=== PATIENT | male | born 1940 | race Two or more races ===

== ENCOUNTER 2024-03-05 07:46 | Inpatient (IN) | payer OTHER ==
[2024-03-05] VITALS (18 sets, daily range): BP systolic 105–166; BP diastolic 47–100; PULSE 70–109; RESP 15–22; TEMP 97.5–98.8; O2SAT 88–98
[~2024-03-05] VITALS: Ht 172.7 cm; Wt 65.8 kg
[~2024-03-05 07:46] MED LIST: ACET1CAP14 PO; ALBU108A5 IN; AMLO1TAB22 PO; APIX5TAB PO; CARB25TA79 PO; DOXA1TAB28 PO; EZET-10 PO; FURO40TA4 PO; HYDR-2792 PO; LACT10PA2 PO; LINA145C OR; MIRT-93 PO; PANT40T PO; ROSU10TA16 PO
[2024-03-05] MEDS: VANCOMYCIN HCL 1000 MG VL ONE (10:08)
[2024-03-05] MEDS: fentaNYL CITRATE 100 MCG/2 ML VL ONE (10:08)
[2024-03-05] MEDS: MIDAZOLAM HCL 2MG/2ML 2ml VIAL (1mg/ml) ONE (10:09)
[2024-03-05] MEDS: VANCOMYCIN 1GM/200ML 200 ML IV ONE (10:09)
[2024-03-05] MEDS: IODIXANOL 320MG/ML 100ML BTL IV ONE (10:10)
[2024-03-05] MEDS: LIDOCAINE 2%HCL (LOCAL ANESTH.) INJ 20ML MDV ONE ×2 (10:16→10:19)
[2024-03-05] MEDS: IOHEXOL 350 MG/ML 100ML IJ ONE (10:51)
[2024-03-05] MEDS ORDERED: NITROGLYCERIN 0.4 MG SL TAB SL PRN (11:30)
[2024-03-05] MEDS ORDERED: MORPHINE SULFATE INJ 2 MG/ml SYRG IV PRN (11:30)
[2024-03-05] MEDS: KETOROLAC TROMETH 30 MG/ML 1ML VIAL IV ONE (12:02)
[2024-03-05] MEDS ORDERED: ONDANSETRON HCL 4 MG/2 ML VIAL IV PRN (14:00)
[2024-03-05] MEDS ORDERED: ALBUTEROL SULF HFA 90MCG INH 200DOSE IN SCH (14:00)
[2024-03-05] MEDS: CARBIDOPA W LEVODOPA 25/100mg TABLET PO SCH (14:16)
[2024-03-05] MEDS: MIRTAZAPINE 30 MG TAB PO SCH (18:45)
[2024-03-05] MEDS: ALBUTEROL SULF 2.5 MG/0.5ML(0.5%) NEB SOLN NEB SCH (19:15)
[2024-03-05] MEDS: IPRATROPIUM BROM 0.5 MG/2.5ML INH SOL NEB SCH (19:15)
[2024-03-05] MEDS: DOXAZOSIN MESYL 2 MG TAB PO SCH (22:00)
[2024-03-05] MEDS: PANTOPRAZOLE 40 MG TAB PO SCH (23:04)
[2024-03-05] MEDS: DOXYCYCLINE 100 MG TAB/CAP PO SCH (23:04)
[2024-03-05] MEDS: ATORVASTATIN 20 MG TAB PO SCH (23:06)
[2024-03-06] VITALS (13 sets, daily range): BP systolic 101–158; BP diastolic 55–80; PULSE 75–99; RESP 16–19; TEMP 97.5–98.9; O2SAT 8–100
[2024-03-06 07:03] LABS: Basophils # (auto) 0 10 ^3/uL (0-0.2); Basophils % (auto) 0.3 % (0.0-2.0); Eosinophils # (auto) 0 10 ^3/uL (0-0.8); Eosinophils % (auto) 0.2 % (0.0-7.0); Hematocrit 36.1 % (41.0-53.0); Hemoglobin 12.3 g/dL (13.5-17.5); Lymphocytes # (auto) 1.1 10 ^3/uL (0.4-5.4); Lymphocytes % (auto) 12.3 % (10.0-50.0); Mean Corpuscular Volume 88.3 fL (80.0-100.0); Monocytes # (auto) 0.6 10 ^3/uL (0-1.3); Monocytes % (auto) 6.8 % (0.0-12.0); Neutrophils % (auto) 80.4 % (37.0-80.0); Platelet Count (auto) 150 10^3/uL (140-450); Red Blood Cells 4.09 10^6/uL (4.5-5.90); Red Cell Distribution Width 15.3 % (11.8-14.3); White Blood Cell 8.7 10^3/uL (4.4-10.8)
[2024-03-06 07:06] LABS: Anion Gap 10 (5-15); Carbon Dioxide 21 mmol/L (20-30); Chloride 114 mmol/L (98-107); Potassium 4.7 mmol/L (3.5-5.1); Sodium 145 mmol/L (136-145)
[2024-03-06 07:07] LABS: Calcium 9.9 mg/dL (8.7-10.4)
[2024-03-06 07:12] LABS: BUN/Creatinine Ratio 20.9 (10.0-20.0); Blood Urea Nitrogen 33 mg/dL (9-23); Glucose 108 mg/dL (74-106)
[2024-03-06] MEDS: ACETAMINOPHEN 325 MG TAB PO PRN (08:42)
[2024-03-06] MEDS: HYDROcodone-ACET 5/325MG TAB PO PRN (18:06)
[2024-03-07] VITALS (9 sets, daily range): BP systolic 116–153; BP diastolic 62–72; PULSE 74–92; RESP 16–18; TEMP 98–98.3; O2SAT 90–100
[2024-03-07] MEDS ORDERED: DOXY100C79 PO (11:15)
== END 2024-03-07 13:20 | disposition home or self-care (01) | DRG 243 ==
LOC: CATH 07:46 → TELE 11:26 → TELE-WESTW 17:42
PROVIDERS: ADMIT Internal Medicine; ATTEND Hospitalist
PROC: 0JH606Z Insertion of Pacemaker, Dual Chamber into Chest Subcutaneous Tissue and Fascia, Open Approach (ICD-10-PCS; principal; 2024-03-05)
PROC: 02H63JZ Insertion of Pacemaker Lead into Right Atrium, Percutaneous Approach (ICD-10-PCS; 2024-03-05)
PROC: 02HK3JZ Insertion of Pacemaker Lead into Right Ventricle, Percutaneous Approach (ICD-10-PCS; 2024-03-05)
DX: I49.5 Sick sinus syndrome (principal); J93.83 Other pneumothorax; G20.A1 Parkinson's disease without dyskinesia, without mention of fluctuations; I12.9 Hypertensive chronic kidney disease with stage 1 through stage 4 chronic kidney disease, or unspecified chronic kidney disease; N18.9 Chronic kidney disease, unspecified; J44.9 Chronic obstructive pulmonary disease, unspecified
CPT/HCPCS: 33208; 36415; 71045; 71250; 80048; 85025; 93005; 94640; 97110; 97116; 97163; 97530; 99152; G0378; J1885; J2250; Q9967

== ENCOUNTER 2024-05-17 18:56 | Inpatient (IN) | payer OTHER ==
[~2024-05-17] VITALS: Ht 175.3 cm; Wt 67.3 kg
[~2024-05-17 18:56] MED LIST changes: +DOXY100C79 PO
[2024-05-17 19:56] LABS: Basophils # (auto) 0 10 ^3/uL (0-0.2); Basophils % (auto) 0.3 % (0.0-2.0); Eosinophils # (auto) 0.1 10 ^3/uL (0-0.8); Eosinophils % (auto) 1.5 % (0.0-7.0); Hematocrit 42.9 % (41.0-53.0); Hemoglobin 13.9 g/dL (13.5-17.5); Lymphocytes # (auto) 0.7 10 ^3/uL (0.4-5.4); Mean Corpuscular Hemoglobin 30.2 pg (28.0-32.0); Mean Corpuscular Hgb Conc. 32.5 g/dL (32.0-36.0); Mean Corpuscular Volume 92.9 fL (80.0-100.0); Monocytes # (auto) 0.6 10 ^3/uL (0-1.3); Monocytes % (auto) 9.6 % (0.0-12.0); Neutrophils # (auto) 4.7 10 ^3/uL (1.6-8.6); Neutrophils % (auto) 76.6 % (37.0-80.0); Nucleated Red Blood Cells % 0.1 %; Platelet Count (auto) 149 10^3/uL (140-450); Red Blood Cells 4.61 10^6/uL (4.5-5.90); Red Cell Distribution Width 15.8 % (11.8-14.3); White Blood Cell 6.2 10^3/uL (4.4-10.8)
[2024-05-17 20:13] LABS: Anion Gap 7 (5-15); Calcium 10.1 mg/dL (8.7-10.4); Carbon Dioxide 21 mmol/L (20-31); Chloride 113 mmol/L (98-107); Sodium 141 mmol/L (136-145)
[2024-05-17 20:19] LABS: BUN/Creatinine Ratio 12.8 (10.0-20.0); Blood Urea Nitrogen 26 mg/dL (9-23); Glucose 82 mg/dL (74-106)
[2024-05-17 20:28] LABS: Potassium 5.6 mmol/L (3.5-5.1)
[2024-05-17 22:50] VITALS: PULSE 81; RESP 14; O2SAT 98
[2024-05-17] MEDS: DEXTROSE (50%) 50ML SYRG IV ONE (23:04)
[2024-05-17] MEDS: InsuLIN REG 1unit/0.01ml Soln (100units/ml) IV ONE (23:13)
[2024-05-17] MEDS: CALCIUM GLUC 1,000mg/50ml-NS 50 ML IV SCH (23:15)
[2024-05-18] VITALS (12 sets, daily range): BP systolic 133–184; BP diastolic 71–94; PULSE 61–81; RESP 14–20; TEMP 97.4–98.7; O2SAT 94–98
[2024-05-18] MEDS: SODIUM BICARB 8.4% 50Meq/50ml SYR Vial IV ONE (00:25)
[2024-05-18] MEDS ORDERED: ACETAMINOPHEN 325 MG TAB PO PRN (00:45)
[2024-05-18] MEDS ORDERED: ONDANSETRON HCL 4 MG/2 ML VIAL IV PRN (00:45)
[2024-05-18] MEDS: SODIUM CHLORIDE 0.9% 1,000 ML IV ONE (00:55)
[2024-05-18] MEDS ORDERED: ALBUTEROL SULF HFA 90MCG INH 200DOSE IN SCH (01:00)
[2024-05-18 01:56] LABS: Chloride 113 mmol/L (98-107); Sodium 144 mmol/L (136-145)
[2024-05-18 01:57] LABS: Anion Gap 6 (5-15); Calcium 10.5 mg/dL (8.7-10.4); Carbon Dioxide 25 mmol/L (20-31)
[2024-05-18 02:02] LABS: BUN/Creatinine Ratio 11.7 (10.0-20.0); Blood Urea Nitrogen 23 mg/dL (9-23); Glucose 69 mg/dL (74-106)
[2024-05-18] MEDS ORDERED: ALBUTEROL SULF 2.5 MG/0.5ML(0.5%) NEB SOLN NEB PRN (03:00)
[2024-05-18] MEDS ORDERED: hydrALAZINE HCL 20 MG/ML VL IV PRN (04:00)
[2024-05-18] MEDS: CARBIDOPA W LEVODOPA 25/100mg TABLET PO SCH (05:42)
[2024-05-18] MEDS: ACETAMINOPHEN 325 MG TAB PO PRN (05:42)
[2024-05-18] MEDS: ACCU-CHEK COMFORT CURVE STRIP VI SCH (05:44)
[2024-05-18] MEDS ORDERED: CARBIDOPA LEVODOPA PO SCH (06:00)
[2024-05-18 07:09] LABS: INR 1.45 (0.9-1.15)
[2024-05-18 07:14] LABS: Alanine Aminotransferase 14 U/L (7-40); Albumin 4.1 g/dL (3.2-4.8); Alkaline Phosphatase 73 U/L (46-116); Anion Gap 7 (5-15); Aspartate Aminotransferase 11 U/L (13-40); BUN/Creatinine Ratio 14.4 (10.0-20.0); Bilirubin, Total 1.2 mg/dL (0.2-1.0); Blood Urea Nitrogen 28 mg/dL (9-23); Calcium 10.4 mg/dL (8.7-10.4); Carbon Dioxide 25 mmol/L (20-31); Chloride 111 mmol/L (98-107); Glucose 76 mg/dL (74-106); Magnesium 2.3 mg/dL (1.6-2.6); Potassium 5.1 mmol/L (3.5-5.1); Sodium 143 mmol/L (136-145); Total Protein 6.5 g/dL (5.7-8.2)
[2024-05-18 07:34] LABS: Urine Bacteria None Seen /hpf (None Seen)
[2024-05-18 07:53] LABS: Urine Blood Negative /uL (Negative); Urine Clarity Clear (Clear); Urine Color Yellow (Yellow); Urine Hyaline Cast FEW /lpf (0 - 2); Urine Protein, UAD Negative (Negative); Urine Urobilinogen 2 mg/dL (Negative); Urine WBC <1 /hpf (0 - 3); Urine pH 7.5 (5.0-9.0)
[2024-05-18] MEDS: APIXABAN 2.5 MG TAB PO SCH (09:02)
[2024-05-18] MEDS: amLODIPine BESYLATE 5 MG TAB PO SCH (09:03)
[2024-05-18] MEDS: FAMOTIDINE 20 MG TAB PO SCH (09:09)
[2024-05-18] MEDS ORDERED: ENOXAPARIN SOD 30 MG/0.3 ML SYRINGE SC SCH ×2 (10:00)
[2024-05-18] MEDS ORDERED: ENOXAPARIN SOD 40 MG/0.4 ML SYRINGE SC SCH (10:00)
[2024-05-18] MEDS ORDERED: PATIENTS OWN MEDICATION (Rosuvastatin Calcium (Crestor) 1 TAB) PO SCH (10:00)
[2024-05-18] MEDS ORDERED: DOXAZOSIN MESYLATE 1 MG PO SCH (10:00)
[2024-05-18] MEDS ORDERED: APIXABAN 5 MG TAB PO SCH (10:00)
[2024-05-18] MEDS ORDERED: Linaclotide Base (Linzess) 145 MCG PO SCH (10:00)
[2024-05-18] MEDS ORDERED: EZETIMIBE 10 MG TAB PO SCH (10:00)
[2024-05-18] MEDS ORDERED: MAGN400T40 PO (10:15)
[2024-05-18] MEDS: SODIUM CHLORIDE 0.9% 1,000 ML IV SCH (13:30)
[2024-05-18] MEDS: EZETIMIBE 10 MG TAB PO SCH (16:20)
[2024-05-18] MEDS ORDERED: MIRTAZAPINE 7.5 MG PO SCH (18:00)
[2024-05-18] MEDS ORDERED: MIRTAZAPINE PO SCH ×2 (18:00)
[2024-05-18] MEDS ORDERED: MIRTAZAPINE 30 MG TAB PO SCH (18:00)
[2024-05-18] MEDS ORDERED: DOXAZOSIN MESYLATE PO SCH (20:00)
[2024-05-18] MEDS: DOXAZOSIN MESYLATE PO SCH (20:00)
[2024-05-18] MEDS: MIRTAZAPINE 7.5 MG PO SCH (20:00)
[2024-05-18] MEDS: ATORVASTATIN 20 MG TAB PO SCH (21:19)
[2024-05-19 01:00] VITALS: BP 148/84; PULSE 80; RESP 19; TEMP 97.7; O2SAT 93
[2024-05-19 05:00] VITALS: BP 147/82; PULSE 79; RESP 18; TEMP 98.3; O2SAT 92
[2024-05-19 07:31] LABS: Albumin 4.1 g/dL (3.2-4.8); Alkaline Phosphatase 71 U/L (46-116); Anion Gap 7 (5-15); Aspartate Aminotransferase 13 U/L (13-40); BUN/Creatinine Ratio 14.6 (10.0-20.0); Bilirubin, Total 1.3 mg/dL (0.2-1.0); Blood Urea Nitrogen 23 mg/dL (9-23); Calcium 10.3 mg/dL (8.7-10.4); Carbon Dioxide 22 mmol/L (20-31); Chloride 112 mmol/L (98-107); Glucose 88 mg/dL (74-106); Potassium 4.8 mmol/L (3.5-5.1); Sodium 141 mmol/L (136-145); Total Protein 6.5 g/dL (5.7-8.2)
[2024-05-19 07:34] LABS: Alanine Aminotransferase < 9 U/L (7-40)
[2024-05-19 08:00] VITALS: PULSE 79; PULSE 87; RESP 17; O2SAT 97
[2024-05-19 09:00] VITALS: BP 152/79; PULSE 81; RESP 18; TEMP 98; O2SAT 96
[2024-05-19 13:00] VITALS: BP 139/72; PULSE 79; TEMP 97.9; O2SAT 98
[2024-05-20] MEDS ORDERED: BLOO1KIT60 XX (13:16)
== END 2024-05-19 17:30 | disposition left against medical advice (07) | DRG 682 ==
LOC: ER 18:56 → EDBD 18:56 → TELE 05-18 00:42 → TELE-EAST 05-18 02:55 → TELE-E-ADS 05-18 18:38
PROVIDERS: ADMIT Nurse Practitioner Family; ATTEND Nurse Practitioner Family
DX: N17.0 Acute kidney failure with tubular necrosis (principal); G93.41 Metabolic encephalopathy; E16.2 Hypoglycemia, unspecified; E87.5 Hyperkalemia; N18.32 Chronic kidney disease, stage 3b; G20.A1 Parkinson's disease without dyskinesia, without mention of fluctuations; F17.200 Nicotine dependence, unspecified, uncomplicated; I25.10 Atherosclerotic heart disease of native coronary artery without angina pectoris; E78.5 Hyperlipidemia, unspecified; N28.1 Cyst of kidney, acquired; I12.9 Hypertensive chronic kidney disease with stage 1 through stage 4 chronic kidney disease, or unspecified chronic kidney disease; F02.80 Dementia in other diseases classified elsewhere, unspecified severity, without behavioral disturbance, psychotic disturbance, mood disturbance, and anxiety; J44.9 Chronic obstructive pulmonary disease, unspecified; I48.91 Unspecified atrial fibrillation; Z53.29 Procedure and treatment not carried out because of patient's decision for other reasons; Z79.2 Long term (current) use of antibiotics; Z79.899 Other long term (current) drug therapy; Z79.1 Long term (current) use of non-steroidal anti-inflammatories (NSAID); Z95.810 Presence of automatic (implantable) cardiac defibrillator; Z81.8 Family history of other mental and behavioral disorders; Z82.0 Family history of epilepsy and other diseases of the nervous system; Z82.5 Family history of asthma and other chronic lower respiratory diseases
CPT/HCPCS: 36415; 70450; 71045; 76775; 80048; 80053; 81001; 82962; 83036; 83735; 84484; 85025; 85610; 93005; 96365; 96375; 97163; 99291; G0378; J1815